=== PATIENT | female | born 1995 | race Caucasian/White ===

== ENCOUNTER 2017-09-05 11:45 | Day surgery (SDC) | payer OTHER ==
[~2017-09-05 11:45] MED LIST: Bacitracin OINTMENT* 0.5% 0.5 oz TUBE ONE; Buffered Lidocaine 0.9% SYRIN* 5 ML/SYR SYRINGE INTRADERM ONE; Dexamethasone IV* 4 MG/ML 1 ML (4 MG) IV SLOW PU ONE; Famotidine IV* 10 MG/ML 2 ML (20 mg) IV ONE; Lidocain 1% EPI 1:100,000 * 30 ML MDV ONE; Lidocaine 4% TOPICAL* 50 ML TOP.SOLN ONE; Oxymetazoline 0.05% NASAL SPR* 15 ML BTL ONE
[2017-09-05] MEDS ORDERED: Famotidine IV* 10 MG/ML 2 ML (20 mg) ONE (11:52)
[2017-09-05] MEDS ORDERED: Dexamethasone IV* 4 MG/ML 1 ML (4 MG) ONE (11:56)
[2017-09-05] MEDS ORDERED: Midazolam* 1 MG/ML 2 ML VIAL (2 MG) ONE (12:18)
[2017-09-05] MEDS ORDERED: fentaNYL* 50 MCG/ML 2 ML VIAL (100 MCG VIAL) ONE (12:18)
[2017-09-05] MEDS ORDERED: Naloxone* 0.4 MG/ML 1 ML VIAL IV PRN (12:34)
[2017-09-05] MEDS ORDERED: Ondansetron ODT TAB* 4 MG PO PRN (12:34)
[2017-09-05] MEDS ORDERED: fentaNYL* 50 MCG/ML 2 ML VIAL (100 MCG VIAL) IV PRN (12:34)
[2017-09-05] MEDS ORDERED: Ketorolac INJ* 30 MG/ML 1 ML VIAL ONE (13:46)
[2017-09-05] MEDS ORDERED: Metoclopramide IV* 5 MG/ML 2 ML VIAL ONE (13:46)
[2017-09-05] MEDS ORDERED: Propofol* 10 MG/ML 20 ML BTL IV PUSH ONE (13:46)
[2017-09-05] MEDS ORDERED: HYDROcodone/ACETAMIN 5-325 MG* 1 TAB ONE (14:38)
[2017-09-05 14:53] VITALS: BP 115/65
--- NOTE | 2017-09-06 12:14 | OP ---
DATE OF OPERATION: 09/05/17 - SDS DATE OF : [birth year] SURGEON: Juan Gardner MD. PRE-OP DIAGNOSIS: Chronic maxillary sinusitis. POST-OP DIAGNOSIS: Chronic maxillary sinusitis. OPERATIVE PROCEDURE: Bilateral endoscopic sinus surgery with maxillary antrostomies under general endotracheal anesthesia. COMPLICATIONS: None. DISPOSITION: Good. SPECIMENS: Left and right maxillary sinus contents. ESTIMATED BLOOD LOSS: Minimal. DESCRIPTION OF PROCEDURE: The patient was taken to the operating room and placed on a supine position on the operating table. General anesthesia was induced and maintained with laryngeal mask airway anesthesia. Turned and draped for the surgery. Her nose was packed with cottonoids impregnated with oxymetazoline and 4% lidocaine. After several minutes using the endoscope, the uncinate process, middle turbinates were injected with 1% lidocaine with 1:100, 000 epinephrine. The middle turbinates were medialized. The ostiomeatal units were repacked. After several minutes, this was removed using the seeker. I found the ostium and the maxillary sinus then used the sickle knife to make a cut on anterior uncinate process. This was then removed with the Blakesley. I then removed the remainder inferiorly and widened the ostium with the Blakesley and . Stammberger Sinu-Foam was placed bilaterally lateral to the middle turbinates. The patient tolerated the procedure well. No complications. She was transferred to recovery room in stable condition. [id number]/CPS #: [id number] MTDD
== END 2017-09-05 15:00 | disposition home or self-care (01) ==
LOC: OR 11:45
PROVIDERS: ATTEND Otolaryngology
DX: J32.0 Chronic maxillary sinusitis (principal); R51 Headache; F17.210 Nicotine dependence, cigarettes, uncomplicated; Z68.33 Body mass index [BMI] 33.0-33.9, adult; F32.9 Major depressive disorder, single episode, unspecified
CPT/HCPCS: 81025; 88305; A9270-GY; J1100; J1885; J2250; J2704; J2765; J3010

== ENCOUNTER 2018-04-04 11:16 | Emergency (ER) | payer SELFPAY ==
[2018-04-04 13:32] VITALS: BP 102/64
--- NOTE | 2018-04-04 15:33 | ED ---
Upper Extremity Pain - HPI Summary HPI Summary: Patient is a 22-year-old female presenting to the ED with left shoulder pain. She states she feels she may have "dislocated" shoulder last evening and was able to "pop" it back in. However, today she endorses continuing discomfort rated a 5/10, constant aching. She has not taken any nvdi-pxy-molqfrb medications for relief. She has been using ice without good relief. She was concerned over a persistent dislocation. She has never had an injury to the shoulder or dislocation in the past. Denies any other concerns or symptoms today. Denies any numbness or tingling, color temperature changes. - History of Current Complaint Chief Complaint: Ashley Stated Complaint: LEFT SHOULDER PAIN Time Seen by Provider: 04/04/18 11:32 Hx Obtained From: Patient Onset/Duration: Started Hours Ago Timing: Constant Severity Initially: Moderate Severity Currently: Moderate Pain Location: Shoulder Character: Aching Aggravating Factor(s): Movement, Lifting, Internal/External Rotation Alleviating Factor(s): Rest Associated Signs & Symptoms: Negative: Swelling, Redness, Bruising, Numbness/ Tingling, Nausea, Vomiting Related History: Dominant Hand Right - Risk Factors Non-Orthopedic Risk Factor: Negative DVT Risk Factors: Negative Septic Arthritis Risk Factor: Negative Compartment Syndrome Risk Factors: Pain - Allergies/Home Medications Allergies/Adverse Reactions: Allergies Allergy/AdvReac Type Severity Reaction Status Date / Time doxycycline Allergy GI Upset Verified 04/04/18 11:18 PMH/Surg Hx/FS Hx/Imm Hx Previously Healthy: Yes Musculoskeletal History: Reports: Other Musculoskeletal History - HX OF FUSED C3 -C4, BORN WITH Sensory History: Reports: Hx Contacts or Glasses - GLASSES Denies: Hx Hearing Aid Opthamlomology History: Reports: Hx Contacts or Glasses - GLASSES Psychiatric History: Reports: Hx Depression - CONTROL WITH MEDS - Surgical History Surgery Procedure, Year, and Place: LEFT ARM FRACTURE REPAIR, [facility]. 2014 WISDOM TEETH EXTRACTION, [place] Hx Anesthesia Reactions: No Infectious Disease History: No Infectious Disease History: Denies: Traveled Outside the [place] in Last 30 Days - Social History Occupation: Employed Part-time Lives: Alone Alcohol Use: Occasionally Hx Substance Use: No Substance Use Type: Reports: None Hx Tobacco Use: Yes Smoking Status (MU): Heavy Every Day Tobacco Smoker Type: Cigarettes Amount Used/How Often: 1 PPD FOR 4-5 YEARS Review of Systems Negative: Fever, Chills, Fatigue, Skin Diaphoresis Negative: Palpitations, Chest Pain Negative: Shortness Of Breath, Cough Genitourinary: Negative Positive: no symptoms reported, see HPI Positive: Myalgia - left shoulder pain Skin: Negative Neurological: Negative All Other Systems Reviewed And Are Negative: Yes Physical Exam Triage Information Reviewed: Yes Vital Signs On Initial Exam: Initial Vitals Temp Pulse Resp BP Pulse Ox 97.5 F 74 14 129/70 97 04/04/18 11:18 04/04/18 11:18 04/04/18 11:18 04/04/18 11:18 04/04/18 11:18 Vital Signs Reviewed: Yes Appearance: Positive: Well-Appearing, Well-Nourished Skin: Positive: Warm, Skin Color Reflects Adequate Perfusion Head/Face: Positive: Normal Head/Face Inspection Eyes: Positive: EOMI, ELICIA, Conjunctiva Clear Neck: Positive: Supple, No Lymphadenopathy Respiratory/Lung Sounds: Positive: Clear to Auscultation, Breath Sounds Present Cardiovascular: Positive: Pulses are Symmetrical in both Upper and Lower Extremities Musculoskeletal: Positive: Pain @ - left shoulder pain Neurological: Positive: Speech Normal Psychiatric: Positive: Affect/Mood Appropriate Diagnostics - Vital Signs Vital Signs Temp Pulse Resp BP Pulse Ox 04/04/18 13:31 98.2 F 64 16 102/64 98 04/04/18 11:18 97.5 F 74 14 129/70 97 - Laboratory Lab Statement: Any lab studies that have been ordered have been reviewed, and results considered in the medical decision making process. Course/Dx - Course Course Of Treatment: During the course treatment, the patient is evaluated for left shoulder pain. She states she was able to "pop" the shoulder back in after she feels she may have dislocated it last evening by stretching too far. However she states it did not come all the way out and was easily able to get back into place. On physical examination, patient has no difficulty with range of motion of abduction or abduction of the shoulder. No difficulty with internal or external rotation, however internal rotation is more comfortable for her. She is encouraged ibuprofen and moist heat to the area. She is requesting a sling which is given. Likely or possibly subluxed the shoulder and dislocation is less likely. If symptoms persist, I have recommended an orthopedic follow-up for a PCP follow-up to which she agrees to. - Diagnoses Differential Diagnosis/HQI/PQRI: Positive: Strain, Sprain Provider Diagnoses: Shoulder strain Discharge - Sign-Out/Discharge Documenting (check all that apply): Patient Departure - Discharge Plan Condition: Stable Disposition: HOME Prescriptions: predniSONE TAB* [Deltasone TAB*] 50 mg PO DAILY #5 tab MDD 1 Forms: *Work Release Referrals: Candelaria Guerrero MD [Primary Care Provider] - Additional Instructions: Prednisone once daily x 5 days Keep arm in sling, but offer early exercises to prevent frozen shoulder Ibpurofen 600mg three times daily Moist heat to the area - Billing Disposition and Condition Condition: STABLE Disposition: Home
== END 2018-04-04 13:31 | disposition home or self-care (01) ==
LOC: ED 11:16
DX: M25.512 Pain in left shoulder (principal); F17.210 Nicotine dependence, cigarettes, uncomplicated; S46.912A Strain of unspecified muscle, fascia and tendon at shoulder and upper arm level, left arm, initial encounter; X58.XXXA Exposure to other specified factors, initial encounter; Y92.9 Unspecified place or not applicable
CPT/HCPCS: 99282

== ENCOUNTER 2018-07-11 20:23 | Emergency (ER) | payer OTHER ==
[2018-07-11 20:40] VITALS: BP 126/64
--- OUTSIDE RECORDS SUMMARY | 2018-07-11 20:41 | XMS REPORT | Continuity of Care Document ---
:1995 Author Organization [facility] Address [address] [place], [place] [id number] Phone Care Team Providers Name Role Phone Adwoa Crowe NP Unavailable Unavailable Allergies, Adverse Reactions, Alerts Substance Reaction Status doxycycline Active Medications Medication Instructions Dosage Effective Dates (start - stop) Status Comments No Drug Therapy Prescribed Problems Condition Effective Dates (start - Clinical Status Comments stop) Encounter for test, result positive Human immunodeficiency virus [HIV] - counseling Encntr screen for infections w sexl mode of transmiss Encntr screen for dis of the bld/bld-form org/immun mechnsm Encounter for screening for human - immunodeficiency virus 9 weeks gestation of RhD positive - Active Procedures Procedure Date No information Results Test Name Date and Time Measure Units Reference Range Abnormal Flag Status Comments No information Advance Directives Directive Yes / No Effective Date File Name No information Encounters Encounter Practice Location Reason(s) Diagnoses Date Provider Providers Description For Visit Copied on Encounter [facility] [place] [facility]- Adwoa. [facility] [address] [place], [address], [place], [place], [place], [id number], [id number], [place]. tel:[phone] [facility] Encounter for Mar-1 [facility] [place] test, Andreina. Provider: Kamari result [address] [place] [place] J, [place], [address], [address], virus [HIV] [place], [address], [place], [place], [facility] [place], [place], [id number], [place] [id number], [place], [address]. [place] infections w sexl [place]. tel:[phone] [phone] mode of tel: [phone] transmissEncntr [id number] screen for dis of the bld/bld-form org/immun mechnsmEncounter for screening for human immunodeficiency virus9 weeks gestation of Family History Family Member Diagnosis Age At Onset No information Immunizations Vaccine Date Status Comments No information Payers Payer name Insurance type Covered libertarian ID Authorization(s) Medicaid MC [id number] Social History Type Description Quantity Date Captured Comments Alcohol Use Details Unknown Caffeine Use Details Unknown Tobacco Use Status Unknown Smoking Status Heavy tobacco smoker Sex Female Vital Signs Date / Height Weight BMI Pulse Blood Temperature Respiratory Body Head BMI Pulse Inhaled Time: Rate Pressure Rate Surface Circumference percentile Ox Ox Area No information Chief Complaint And Reason For Visit No information Reason For Referral Reason For Referral No information Plan Of Treatment Date Type Action Status Appointment CALVIN BENITEZ BOOKED History Of Present Illness Encounter Date Complaint History Of Present Illness No information Functional Status Date Functional Assessment No information Medications Administered Medication Instructions Dosage Effective Dates (start - stop) Status Comments No Drug Therapy Prescribed Instructions Date Instruction Additional Information No information Assessments Type Assessment Date No information Goals Health Concern Goal Type Priority Status Date No information Medical Equipment Description Device [place] Device Identifier Effective Dates (start - stop ) Status No information Mental Status Date Cognitive Assessment No information Health Concerns Observation Date No information Concern Status Date No information
--- OUTSIDE RECORDS SUMMARY | 2018-07-11 20:41 | XMS REPORT | Continuity of Care Document ---
:1995 Author Organization [facility] Address [address], [place] [id number] Phone Care Team Providers Name Role Phone Sally Aviles NP Unavailable Unavailable Allergies, Adverse Reactions, Alerts Substance Reaction Status doxycycline Active Medications Medication Instructions Dosage Effective Dates Status Comments (start - stop) ondansetron 8 mg 1 ODT administer in - Active disintegrating tablet clinic PRN, august repeat x 1 Mifeprex 200 mg 1 po administer to - No Longer tablet pt in clinic Active misoprostol 200 mcg MAB: 4 tabs buccal - No Longer tablet x 1; repeat 4 tabs Active SL in 4 hrs (#8) ondansetron [address] 1 tablet by 8 MG - No Longer disintegrating tablet translingual route Active every 8 hours for 2 days on top of the tongue where it will dissolve, then swallow Problems Condition Effective Dates (start - Clinical Status Comments stop) Encounter for elective termination of 9 weeks gestation of Encounter for test, result positive Human immunodeficiency virus [HIV] - counseling Encntr screen for infections w sexl mode of transmiss Encntr screen for dis of the bld[facility] Encounter for screening for human - immunodeficiency virus 9 weeks gestation of RhD positive - Active Procedures Procedure Date Est. Patient AB Problem Focused MED Or PROB F/U Mar-14-2019 MISOPROSTOL, ORAL, 200 MCG #4 MIFEPRISTONE, ORAL, 200 MG Results Test Name Date and Time Measure Units Reference Range Abnormal Flag Status Comments No information Advance Directives Directive Yes / No Effective Date File Name No information Encounters Encounter Practice Location Reason(s) Diagnoses Date Provider Providers Description For Visit Copied on Encounter [facility] Med[facility] [place] elective . Provider: Kamari (chief termination of [address] complaint) pregnancy9 weeks [place], [address], [address] [place], [address], [place], [place], [address]. [place], [address]. [id number], tel:+ tel:+ [phone] tel:[phone] [facility] En[facility] for [facility] [place] test, Andreina. Provider: [facility] result 9 [address] [place], [place], [address], [address] [place] virus [HIV] [place], [address], [facility] [place], [place], [place], [place] [address], [place], [address]. [id number], infections w sexl [place]. tel:[phone] [place] mode of tel: [phone] tel:[phone] transmissEncntr [phone] screen for dis of the bld/bld-form org/immun mechnsmEncounter for screening for human immunodeficiency virus9 weeks gestation of Family History Family Member Diagnosis Age At Onset No information Immunizations Vaccine Date Status Comments No information Payers Payer name Insurance type Covered alliance party ID Authorization(s) Medicaid MC [id number] Social History Type Description Quantity Date Captured Comments Alcohol Use Details Unknown Caffeine Use Details Unknown Tobacco Use Status Smoking Status Heavy tobacco smoker Sex Female Vital Signs Date / Height Weight BMI Pulse Blood Temperature Respiratory Body Head BMI Pulse Inhaled Time: Rate Pressure Rate Surface Circumference percentile Ox Ox Area No information Chief Complaint And Reason For Visit Most recent encounter only, dated '06/18/2018 14:00'. Medication (chief complaint) Reason For Referral Reason For Referral No information Plan Of Treatment Date Type Action Status Goal Tobacco cessation counseling completed Appointment CALVIN BENITEZ BOOKED History Of Present Illness Encounter Date Complaint History Of Present Illness No information Functional Status Date Functional Assessment No information Medications Administered Medication Instructions Dosage Effective Dates (start - stop) Status Comments No information Instructions Date Instruction Additional Information No information Assessments Type Assessment Date assessment Encounter for elective termination of assessment 9 weeks gestation of Goals Health Concern Goal Type Priority Status Date No information Medical Equipment Description Device [place] Device Identifier Effective Dates (start - stop ) Status No information Mental Status Date Cognitive Assessment Normal Orientation Health Concerns Observation Date No information Concern Status Date No information
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
--- NOTE | 2018-07-12 11:55 | UC ---
- Progress Note Progress Note: RADIOLOGY REPORT REVIEWED. CONFIRMS NO FRACTURE. NO CHANGE IN MGMT. Course/Dx - Diagnoses Provider Diagnoses: Sprain of right index finger Discharge - Sign-Out/Discharge Documenting (check all that apply): Post-Discharge Follow Up All imaging exams completed and their final reports reviewed: Yes - Discharge Plan Condition: Stable Disposition: HOME Patient Education Materials: Finger Sprain (ED) Forms: *Work Release Referrals: Candelaria Guerrero MD [Primary Care Provider] - - Billing Disposition and Condition Condition: STABLE Disposition: Home
== END 2018-07-11 21:52 | disposition home or self-care (01) ==
LOC: UCEAST 20:23
DX: S63.610A Unspecified sprain of right index finger, initial encounter (principal); F17.210 Nicotine dependence, cigarettes, uncomplicated; Z88.1 Allergy status to other antibiotic agents; X58.XXXA Exposure to other specified factors, initial encounter; Y92.9 Unspecified place or not applicable
CPT/HCPCS: 73140; 99212; G0463